=== PATIENT | female | born 1980 | race Caucasian/White ===

== ENCOUNTER 2017-06-06 16:49 | Emergency (ER) | payer SELFPAY ==
--- NOTE | 2017-06-06 17:45 | RAD ---
RIGHT HAND THREE VIEWS: History: 36-year-old female with right hand pain following an injury on Tuesday. FINDINGS: There is an irregular nondisplaced fracture through the distal tuft of the distal phalanx of the righ t fourth finger. The remainder of the right hand remains intact. IMPRESSION: Irregular nondisplaced fracture of the distal tuft of the distal phalanx of the fourth finger. POS: [facility]
[2017-06-06] MEDS ORDERED: Ketorolac Tromethamine 30 MG/ML VIAL ONE (18:09)
== END 2017-06-06 18:48 | disposition home or self-care (01) ==
LOC: ERS 16:49
DX: S62.634A Displaced fracture of distal phalanx of right ring finger, initial encounter for closed fracture (principal); F31.9 Bipolar disorder, unspecified; F17.210 Nicotine dependence, cigarettes, uncomplicated; W22.8XXA Striking against or struck by other objects, initial encounter; Y92.69 Other specified industrial and construction area as the place of occurrence of the external cause; Y99.0 Civilian activity done for income or pay
CPT/HCPCS: 96372; J1885

== ENCOUNTER 2017-09-01 13:06 | Emergency (ER) | payer SELFPAY | END 2017-09-01 13:39 | disposition home or self-care (01) | LOC: ERS 13:06 | DX: L30.9 Dermatitis, unspecified (principal); F17.210 Nicotine dependence, cigarettes, uncomplicated | CPT/HCPCS: 99283 ==

== ENCOUNTER 2018-01-02 01:00 | Emergency (ER) | payer SELFPAY ==
[2018-01-02 01:46] LABS: Pregnancy Test - Urine (BHCG) Negative (Negative); Pregu Control Background? CLEAR/WHITE (CLR/WHITE); Pregu Control Bar Appear? YES (CONTROL BAR)
[2018-01-02 01:47] LABS: Bilirubin Negative (Negative); Blood, Urine Large (Negative); Clarity CLEAR (Clear); Glucose, Urine (Dipstick) Negative (Negative); Leukocyte Negative (Negative); Nitrite Negative (Negative); Protein, Urine (Dipstick) Negative (Neg-Trace); Specific Gravity, Urine 1.028 (1.002-1.036)
[2018-01-02 01:50] LABS: Bacteria/HPF None Seen HPF (None Seen); Hyaline Casts/LPF 0-3 HYALINE CAST LPF (0-3 Hyaline); Pathc Cast-AUWi Flag 0.43 (0-2.49); Squamous Epithelial 0-3 HPF (0-3); WBC/HPF 0-3 HPF (0-3)
[2018-01-02 01:54] LABS: Specific Gravity 1.028 (1.002-1.036)
[2018-01-02] MEDS ORDERED: Ketorolac Tromethamine 30 MG/ML VIAL ONE (01:56)
== END 2018-01-02 02:15 | disposition home or self-care (01) ==
LOC: ERS 01:00
DX: S29.012A Strain of muscle and tendon of back wall of thorax, initial encounter (principal); F17.210 Nicotine dependence, cigarettes, uncomplicated; X50.3XXA Overexertion from repetitive movements, initial encounter; Y92.69 Other specified industrial and construction area as the place of occurrence of the external cause
CPT/HCPCS: 81003; 81015; 81025; 96372; J1885

== ENCOUNTER 2019-03-15 20:28 | Emergency (ER) | payer SELFPAY ==
[2019-03-15] MEDS ORDERED: Ketorolac Tromethamine 30 MG/ML VIAL ONE (22:21)
== END 2019-03-15 22:51 | disposition home or self-care (01) ==
LOC: ERS 20:28
DX: M54.5 Low back pain (principal); F17.210 Nicotine dependence, cigarettes, uncomplicated
CPT/HCPCS: 96372; 99283; J1885

== ENCOUNTER 2019-04-13 18:53 | Emergency (ER) | payer SELFPAY ==
[2019-04-13] MEDS ORDERED: methylPREDNISolone Sod Succ/PF 125 MG/2 ML VIAL ONE (19:10)
[2019-04-13] MEDS ORDERED: Famotidine 20 MG TAB ONE (19:10)
[2019-04-13] MEDS ORDERED: diphenhydrAMINE 50 MG CAP ONE (19:11)
[2019-04-13] MEDS ORDERED: EPINEPHrine 1 mg/ml MDV (1ml Charge) ONE (19:37)
== END 2019-04-13 20:03 | disposition home or self-care (01) ==
LOC: ERS 18:53
DX: T78.40XA Allergy, unspecified, initial encounter (principal); F17.210 Nicotine dependence, cigarettes, uncomplicated
CPT/HCPCS: 96372; 99282; J0171; J2930; Q0163

== ENCOUNTER 2022-12-22 09:01 | Emergency (ER) | payer SELFPAY ==
[2022-12-22] MEDS ORDERED: Ketorolac Tromethamine 30 MG/ML VIAL ONE (10:45)
[2022-12-22] MEDS ORDERED: Dexamethasone 4 MG TAB ONE (10:52)
== END 2022-12-22 10:57 | disposition home or self-care (01) ==
LOC: ERS 09:01
DX: S46.911A Strain of unspecified muscle, fascia and tendon at shoulder and upper arm level, right arm, initial encounter (principal); F17.290 Nicotine dependence, other tobacco product, uncomplicated
CPT/HCPCS: 96372; J1885; J8540